=== PATIENT | male | born 1980 | race Caucasian/White ===

== ENCOUNTER 2017-08-22 22:18 | Emergency (ER) | payer BC ==
[~2017-08-22] VITALS: Ht 177.8 cm; Wt 95.2 kg
[2017-08-22 22:48] VITALS: Ht 177.8 cm; Wt 95.2 kg
[2017-08-23 01:23] VITALS: BP 136/75
== END 2017-08-23 01:15 | disposition home or self-care (01) ==
LOC: ED 22:18
DX: J98.01 Acute bronchospasm (principal); F17.210 Nicotine dependence, cigarettes, uncomplicated
CPT/HCPCS: 99406

== ENCOUNTER 2019-01-17 17:39 | Emergency (ER) | payer BC ==
[~2019-01-17] VITALS: Ht 182.9 cm; Wt 94.0 kg
[2019-01-17 18:05] VITALS: Ht 182.9 cm; Wt 94.0 kg
[2019-01-17 21:24] VITALS: BP 127/91
== END 2019-01-17 21:24 | disposition home or self-care (01) ==
LOC: ED 17:39
DX: F41.9 Anxiety disorder, unspecified (principal); R07.89 Other chest pain; R25.1 Tremor, unspecified; R42 Dizziness and giddiness; R06.00 Dyspnea, unspecified; Z88.0 Allergy status to penicillin
CPT/HCPCS: 82962